=== PATIENT | female | born 1980 | race Caucasian/White ===

== ENCOUNTER 2022-10-08 19:33 | Emergency (ER) | payer OTHER, MEDICAID ==
[~2022-10-08] VITALS: Ht 175.3 cm; Wt 54.4 kg
[2022-10-08 19:37] VITALS: BP_SYST 128
--- NOTE | 2022-10-08 19:37 | NUR ---
Placed in room 03 . Placed on press operator helper, blood pressure machine and pulse oximeter. To gown for exam. Side rails up. Report given to CASI Perez
--- NOTE | 2022-10-08 20:11 | NUR ---
BIB SOLUTION LEAD FROM ACCIDENT SITE WITH C/O CHEST PAIN, INFORMED OF PLAN OF CARE, ER MD AT BEDSIDE FOR ASSESSMENT. NO S/S OF ANY DISTRESS NOTED AT THIS TIME. WILL CONTINUE TO MONITOR.
[2022-10-08] MEDS ORDERED: KETOROLAC TROMETHAMINE 30 MG VIAL IM ONE (20:15)
[2022-10-08] MEDS ORDERED: DIPHENHYDRAMINE HCL 25 MG CAPSULE PO ONE (20:15)
[2022-10-08] MEDS ORDERED: METOCLOPRAMIDE HCL 10 MG TABLET PO ONE (20:15)
--- NOTE | 2022-10-08 20:45 | NUR ---
BENADRYL WAS NOT GIVEN PATIENT REFUSED.
--- NOTE | 2022-10-08 21:11 | NUR ---
Patient was medicated as per order, [employer] at bedside talking to patient.
[2022-10-08] MEDS ORDERED: ACET325T53 PO ×2 (21:23→21:59)
[2022-10-08] MEDS ORDERED: IBUP-1969 PO ×2 (21:23→21:59)
[2022-10-08] MEDS ORDERED: LIDOINT TP ×2 (21:23→21:59)
[2022-10-08] MEDS ORDERED: ACET1TAB93 PO ×2 (21:45→21:59)
[2022-10-08 22:13] VITALS: BP_SYST 143
--- NOTE | 2022-10-08 22:19 | NUR ---
ACI GIVEN STATES UNDERSTANDING, REMAINS STABLE FOR DISCHARGE HOME.
== END 2022-10-08 22:19 | disposition home or self-care (01) ==
LOC: SED 19:33
DX: S20.211A Contusion of right front wall of thorax, initial encounter (principal); G43.909 Migraine, unspecified, not intractable, without status migrainosus; Z79.899 Other long term (current) drug therapy; V49.40XA Driver injured in collision with unspecified motor vehicles in traffic accident, initial encounter; Y93.89 Activity, other specified; Y92.89 Other specified places as the place of occurrence of the external cause; Y99.8 Other external cause status
CPT/HCPCS: 99283; 71046; 93005; Q0163; J8597; J1885